=== PATIENT | female | born 1980 | race Caucasian/White ===

== ENCOUNTER 2019-06-12 18:28 | Emergency (ER) | payer BC, OTHER ==
[~2019-06-12] VITALS: Ht 170.2 cm; Wt 59.0 kg
[2019-06-12 20:19] LABS: ABSOLUTE NEUTROPHILS 5.2 thou/uL (1.4-8.2); BASOPHILS 0.5 % (0.0-2.0); EOSINOPHILS 0.7 % (0.0-3.0); HEMATOCRIT 44.3 % (37.0-47.0); HEMOGLOBIN 14.9 gm/dL (12.0-15.0); LYMPHOCYTES 21.1 % (24.0-44.0); MCH 31.1 pg (26.0-34.0); MCHC 33.6 g/dL (28.0-37.0); MCV 92.4 fL (80.0-100.0); MONOCYTES 6.7 % (1.0-8.0); PLATELET COUNT 277 thou/uL (150-400); RDW 12.2 % (10.5-14.5); WBC 7.3 thou/uL (4.0-11.0)
[2019-06-12] MEDS ORDERED: LEXAPRO 10 MG T10 M2 PO (20:21)
[2019-06-12 20:26] LABS: ANION GAP 8 mmol/L (7-16); BUN 10 mg/dL (7-18); CALCIUM 9.4 mg/dL (8.5-10.1); CHLORIDE 100 mmol/L (98-107); CO2 28 mmol/L (21-32); CREATININE 0.8 mg/dL (0.6-1.0); GLUCOSE 109 mg/dL (74-106); POTASSIUM 3.2 mmol/L (3.5-5.1); SODIUM 136 mmol/L (136-145)
[2019-06-12 20:36] LABS: ALBUMIN 4.6 g/dL (3.4-5.0); SGOT 20 U/L (15-37); SGPT 20 U/L (30-65); TOTAL BILIRUBIN 0.3 mg/dL (<0.1-1.0); TOTAL PROTEIN 8.5 g/dL (6.4-8.2); TROPONIN-I <0.06 ng/mL (<0.06)
[2019-06-12] MEDS ORDERED: LORAZEPAM 0.50.5 MG PO (22:53)
[2019-06-12 23:10] VITALS: BP 124/77
--- NOTE | 2019-06-13 08:18 | EKG ---
[facility] [place] [address] ELECTROCARDIOGRAM REPORT Name: REJI BOSTON Room #: DEP [facility]#: [id number] Admission: 06/12/19 Attend Phys: Discharge: 06/12/19 Date of : 80 Report #: [id number] THIS REPORT FOR: cc: FAM - Family physician unknown FAM - Family physician unknown Phan Becerra MD ~ THIS REPORT FOR: //name// [facility] ED Test Date: 2019-06-12 Test Time: 18:38:35 Pat Name: REJI BOSTON Department: Room: Gender: Broadcast Journalist: : 1980 Requested By: Vance Ayon Order Number: [id number] MD: Phan Becerra Measurements Intervals [place] Rate: 105 P: 85 [place]: 193 QRS: 95 QRSD: 85 T: 17 QT: 348 QTc: 461 Interpretive Statements Sinus tachycardia Biatrial enlargement Borderline right axis deviation Borderline T wave abnormalities No previous ECG available for comparison Electronically Signed On 06-13-2019 8:17:10 TILE FITTER by Phan Becerra [email or web address] <ELECTRONICALLY SIGNED> By: Phan Becerra MD 06/13/19816 37 37 Phan Becerra MD /GARRISON
== END 2019-06-12 23:18 | disposition home or self-care (01) ==
LOC: ER 18:28
PROVIDERS: Emergency Medicine
DX: R07.89 Other chest pain (principal); Z88.0 Allergy status to penicillin; Z88.1 Allergy status to other antibiotic agents